=== PATIENT | male | born 1970 | race African-American/Black ===

== ENCOUNTER → 2018-06-29 | Outpatient (CLI) | payer BC ==
[~2018-06-29] MED LIST: FLEXERIL PO; PREDNISONE 20 M20 M1 PO; ULTRAM 50MG TAB50 MG PO
== END ==
LOC: M.RAD 15:26
DX: M47.897 Other spondylosis, lumbosacral region (principal); M53.3 Sacrococcygeal disorders, not elsewhere classified; G89.29 Other chronic pain

== ENCOUNTER 2018-07-01 01:29 | Emergency (ER) | payer BC ==
[~2018-07-01] VITALS: Ht 182.9 cm; Wt 95.3 kg
[2018-07-01] MEDS ORDERED: PREDNISONE 20 M20 M1 PO (02:02)
[2018-07-01] MEDS ORDERED: ULTRAM 50MG TAB50 MG PO (02:02)
[2018-07-01] MEDS ORDERED: FLEXERIL PO (02:02)
[2018-07-01 02:33] VITALS: BP 112/77
== END 2018-07-01 02:38 | disposition home or self-care (01) ==
LOC: M.ERS 01:29
DX: M54.5 Low back pain (principal)